=== PATIENT | male | born 1945 | race Caucasian/White ===

== ENCOUNTER 2021-04-22 10:04 | Observation (INO) | payer MEDICARE ==
[2021-04-22] MEDS ORDERED: Sodium Chloride 0.9% 1000 ML 1,000 ML IV SCH (10:15)
[2021-04-22 10:42] LABS: Hemoglobin 8.3 gm/dl (12.5-18.0); Mean Cell Volume 97.9 fl (78-100); Mean Corpuscular Hgb Concent. 29.6 g/dl (32-36); Mean Platelet Volume 9.7 fl (7.5-11.0); Platelet Count 478 K/mm3 (150-450); Red Blood Count 2.86 M/mm3 (4.1-5.6); Red Cell Distribution Width 18.1 % (11.5-14.0); White Blood Count 10.9 K/mm3 (4.0-10.5)
--- NOTE | 2021-04-22 10:45 | ERPHSYRPT ---
- History of Present Illness Time Seen by Provider: 04/22/21 10:41 Source: patient Exam Limitations: no limitations Physician History: Patient is 76-year-old male with significant past medical history of coronary artery disease hypertension hypertensive heart disease with congestive heart failure recently patient underwent coronary artery bypass graft 10 days ago and was recuperating well at home with his son. Since last 2 days he started having shortness of breath. So his son called ambulance. Patient denies any chest pain nausea vomiting abdominal pain. Patient also denies any swelling on his feet. When patient came to the emergency room patient shortness of breath was resolved. Timing/Duration: yesterday Activities at Onset: none Chest Pain Radiation: no radiation Severity of Pain-Max: none Severity of Pain-Current: none Modifying Factors: Improves With: nothing Nitro Today/Relief: no nitro taken today Aspirin Treatment Today: 81 mg x 1 Associated Symptoms: shortness of breath Prior Chest Pain/Cardiac Workup: recently seen/treated, recent hospitalization (CABG at [facility] 10 days ago) Allergies/Adverse Reactions: No Known Drug Allergies Allergy (Verified 04/22/21 10:47) Home Medications: Amiodarone HCl 200 mg PO DAILY 04/22/21 [History] Aspirin EC 81 mg [Ecotrin 81 mg] 81 mg PO DAILY 04/22/21 [History] Atorvastatin Calcium [Lipitor] 80 mg PO DAILY 04/22/21 [History] Cholecalciferol (Vitamin D3) [Vitamin D] 1,000 unit PO DAILY 04/22/21 [History] Clopidogrel Bisulfate 75 mg [PLAVIX 75 MG Tablet] 75 mg PO DAILY 04/22/21 [History] Cyanocobalamin (Vitamin B-12) [B-12] 1,000 mcg PO DAILY 04/22/21 [History] Furosemide 20 mg [Lasix 20 mg] 20 mg PO DAILY 04/22/21 [History] Metformin HCl 500 mg [Glucophage 500 MG] 500 mg PO BIDWM 04/22/21 [History] Metoprolol Tartrate 25 mg [Lopressor 25MG Tab] 12.5 mg PO BID 04/22/21 [History] PANTOPRAZOLE 40 mg Tablet [Protonix 40MG Tablet] 40 mg PO DAILY 04/22/21 [History] Potassium Chloride 10 meq PO BID 04/22/21 [History] - Review of Systems Constitutional: No Fever, No Chills Eyes: No Symptoms Ears, Nose, & Throat: No Symptoms Respiratory: Dyspnea on Exertion (MICHAEL), No Cough, No Dyspnea Cardiac: Orthopnea, PND, No Chest Pain, No Edema, No Syncope Abdominal/Gastrointestinal: No Abdominal Pain, No Nausea, No Vomiting, No Diarrhea Genitourinary Symptoms: No Dysuria Musculoskeletal: No Back Pain, No Neck Pain Skin: No Rash Neurological: No Dizziness, No Focal Weakness, No Sensory Changes Psychological: No Symptoms Endocrine: No Symptoms All Other Systems: Reviewed and Negative - Nursing Vital Signs Nursing Vital Signs: Initial Vital Signs Temperature 99.3 F 04/22/21 10:28 Pulse Rate 73 04/22/21 10:28 Respiratory Rate 18 04/22/21 10:28 Blood Pressure 149/79 04/22/21 10:28 O2 Sat by Pulse Oximetry 100 04/22/21 10:28 Pain Scale Pain Intensity 0 - Physical Exam General Appearance: no apparent distress, alert Eye Exam: PERRL/EOMI, eyes nml inspection Ears, Nose, Throat Exam: normal ENT inspection, moist mucous membranes Neck Exam: normal inspection, non-tender, supple Respiratory Exam: diminished breath sounds, crackles/rales, No respiratory distress Cardiovascular Exam: regular rate/rhythm, capillary refill <2 sec, No edema Gastrointestinal/Abdomen Exam: soft, No tenderness, No mass Back Exam: normal inspection, No CVA tenderness, No vertebral tenderness Extremity Exam: normal inspection, normal range of motion Neurologic Exam: alert, oriented x 3, cooperative, normal mood/affect, nml cerebellar function, sensation nml, No motor deficits Skin Exam: normal color, warm, dry Lymphatic Exam: No adenopathy - Course Nursing assessment & vital signs reviewed: Yes EKG Interpreted by Me: Non-specific ST Changes Rhythm Strip: Normal Sinus Rhythm - Radiology Exams Chest X-ray Interpretation: Reviewed by me, Infiltrates, Pneumonia (CHF changes) Ordered Tests: Active Orders 24 hr Category Date Time Status EKG-ER Only STAT Care 04/22/21 10:08 Active CHEST 1 VIEW (PORTABLE) Stat Exams 04/22/21 10:08 Taken CBC W DIFF Stat Lab 04/22/21 10:20 Completed CMP Stat Lab 04/22/21 10:20 Completed MAGNESIUM Stat Lab 04/22/21 10:20 Completed Manual Differential NC Stat Lab 04/22/21 10:20 Completed NT PRO BNP Stat Lab 04/22/21 10:20 Completed TROPONIN Q3H Lab 04/22/21 10:20 Completed TROPONIN Q3H Lab 04/22/21 13:15 Ordered TROPONIN Q3H Lab 04/22/21 16:15 Ordered TROPONIN Q3H Lab 04/22/21 19:15 Ordered TROPONIN Q3H Lab 04/22/21 22:15 Ordered Medication Summary Generic Name Dose Route Start Last Admin Trade Name Freq PRN Reason Stop Dose Admin Sodium Chloride 1,000 mls @ 50 mls/hr 04/22/21 10:15 Sodium Chloride 0.9% 1000 Ml IV 05/22/21 10:14 .Q20H YVON Discontinued Medications Generic Name Dose Route Start Last Admin Trade Name Freq PRN Reason Stop Dose Admin Furosemide Confirm 04/22/21 11:08 Furosemide 40 Mg/4 Ml Vial Administered 04/22/21 11:09 Dose 40 mg .ROUTE .STK-MED ONE Furosemide 40 mg 04/22/21 11:17 04/22/21 11:17 Furosemide 40 Mg/4 Ml Vial IV 04/22/21 11:18 40 mg STAT ONE Administration Lab/Rad Data: Laboratory Result Diagrams 04/22/21 10:20 04/22/21 10:20 Laboratory Results 04/22/21 04/22/21 04/22/21 Range/Units 11:27 10:20 10:20 WBC (4.0-10.5) K/mm3 RBC (4.1-5.6) M/mm3 Hgb (12.5-18.0) gm/dl Hct (42-50) % MCV (78-100) fl MCH (26-32) pg MCHC (32-36) g/dl RDW (11.5-14.0) % Plt Count (150-450) K/mm3 MPV (7.5-11.0) fl Segmented Neutrophils (36.-66.) % Band Neutrophils (0.0-2.0) % Lymphocytes (Manual) (24-44) % Monocytes (Manual) (0.0-12.0) % Eosinophils (Manual) (0.00-3.0) % Metamyelocytes % Hypersegmented Polys Hypochromia Toxic Granulation Platelet Estimate (NORMAL) RBC Morphology Polychromasia Poikilocytosis Anisocytosis Sodium 138 (137-145) mmol/L Potassium 4.1 (3.5-5.1) mmol/L Chloride 105 (98-107) mmol/L Carbon Dioxide 25 (22-30) mmol/L Anion Gap 12.1 (5-15) MEQ/L BUN 23 H (9-20) mg/dL Creatinine 1.20 (0.66-1.25) mg/dL Estimated GFR > 60.0 ML/MIN Glucose 120 H (74-106) mg/dL Calcium 8.4 (8.4-10.2) mg/dL Magnesium 1.9 (1.6-2.3) mg/dL Total Bilirubin 0.60 (0.2-1.3) mg/dL AST 47 (17-59) U/L ALT 36 (0-50) U/L Alkaline Phosphatase 127 H (38-126) U/L Troponin I 1.860 H* (0.000-0.034) ng/mL NT-Pro-B Natriuret Pep 08124 H (0-1800) pg/mL Serum Total Protein 5.9 L (6.3-8.2) g/dL Albumin 3.1 L (3.5-5.0) g/dL Influenza Type A Ag NEGATIVE (NEGATIVE) Influenza Type B Ag NEGATIVE (NEGATIVE) RSV (PCR) NEGATIVE (Negative) SARS-CoV-2 (PCR) POSITIVE A (NEGATIVE) 04/22/21 Range/Units 10:20 WBC 10.9 H (4.0-10.5) K/mm3 RBC 2.86 L (4.1-5.6) M/mm3 Hgb 8.3 L (12.5-18.0) gm/dl Hct 28.0 L (42-50) % MCV 97.9 (78-100) fl MCH 29.0 (26-32) pg MCHC 29.6 L (32-36) g/dl RDW 18.1 H (11.5-14.0) % Plt Count 478 H (150-450) K/mm3 MPV 9.7 (7.5-11.0) fl Segmented Neutrophils 84 H (36.-66.) % Band Neutrophils 1 (0.0-2.0) % Lymphocytes (Manual) 6 L (24-44) % Monocytes (Manual) 5 (0.0-12.0) % Eosinophils (Manual) 3 (0.00-3.0) % Metamyelocytes 1 % Hypersegmented Polys 1+ Hypochromia 1+ Toxic Granulation 1+ Platelet Estimate NORMAL (NORMAL) RBC Morphology ABNORMAL Polychromasia 1+ Poikilocytosis 1+ Anisocytosis 1+ Sodium (137-145) mmol/L Potassium (3.5-5.1) mmol/L Chloride (98-107) mmol/L Carbon Dioxide (22-30) mmol/L Anion Gap (5-15) MEQ/L BUN (9-20) mg/dL Creatinine (0.66-1.25) mg/dL Estimated GFR ML/MIN Glucose (74-106) mg/dL Calcium (8.4-10.2) mg/dL Magnesium (1.6-2.3) mg/dL Total Bilirubin (0.2-1.3) mg/dL AST (17-59) U/L ALT (0-50) U/L Alkaline Phosphatase (38-126) U/L Troponin I (0.000-0.034) ng/mL NT-Pro-B Natriuret Pep (0-1800) pg/mL Serum Total Protein (6.3-8.2) g/dL Albumin (3.5-5.0) g/dL Influenza Type A Ag (NEGATIVE) Influenza Type B Ag (NEGATIVE) RSV (PCR) (Negative) SARS-CoV-2 (PCR) (NEGATIVE) - Progress Progress: improved Air Movement: fair Progress Note: 04/22/21 12:25 Patient troponin is elevated as well as patient is positive for Covid infection. I talked to the laundry operator wash room at [facility], [place] but they are also on diversion because of the Covid pandemic. Their hospital beds are full so at this point of time they will not be able to accept the patient. According to laundry operator wash room patient elevated troponin is probably due to recent surgery but his shortness of breath may be related to his Covid infection as well as congestive heart failure. He advised patient to keep him here in the Covid unit. Patient's son was also informed about this decision and my conversation with the laundry operator wash room as well as laundry operator wash room recommendation. Patient and son agreed for admission here. Blood Culture(s) Obtained: No Antibiotics given: No Discussed with : Other (Dr Hunter Mayorga) Will see patient in: hospital (full admit) Counseled pt/family regarding: lab results, diagnosis, need for follow-up, rad results - Departure Departure Disposition: In-patient Admission Clinical Impression: Pneumonia due to COVID-19 virus, S/P CABG x 3 CHF (congestive heart failure), NYHA class II Qualifiers: Congestive heart failure type: combined Congestive heart failure chronicity: acute Qualified Code(s): I50.41 - Acute combined systolic (congestive) and diastolic (congestive) heart failure Condition: Fair Critical Care Time: Yes Critical Care Time(excluding separately billable procedures): Critical 30-74 mins Referrals: NICOLE PRICE [Primary Care Provider] - Follow up/PCP as directed Instructions: Heart Failure
[2021-04-22 10:49] LABS: ALBUMIN 3.1 g/dL (3.5-5.0); ALKALINE PHOSPHATASE 127 U/L (38-126); ANION GAP 12.1 MEQ/L (5-15); BLOOD UREA NITROGEN 23 mg/dL (9-20); CHLORIDE 105 mmol/L (98-107); Calcium 8.4 mg/dL (8.4-10.2); Carbon Dioxide 25 mmol/L (22-30); EST GLOMERULAR FILTRATION RATE > 60.0 ML/MIN; Glucose 120 mg/dL (74-106); MAGNESIUM 1.9 mg/dL (1.6-2.3); Potassium 4.1 mmol/L (3.5-5.1); SGOT/AST 47 U/L (17-59); SGPT/ALT 36 U/L (0-50); SODIUM 138 mmol/L (137-145); Total Protein 5.9 g/dL (6.3-8.2)
[2021-04-22 11:04] LABS: NT PRO BNP 13500 pg/mL (0-1800)
[2021-04-22] MEDS ORDERED: Lasix 40 MG/4 ML ONE (11:08)
[2021-04-22 11:15] LABS: ANISOCYTOSIS 1+; BAND 1 % (0.0-2.0); Eosinophil 3 % (0.00-3.0); Hypersegmented Polys 1+; Hypochromia 1+; Lymphocytes 6 % (24-44); Metamyelocyte 1 %; Monocyte 5 % (0.0-12.0); Neutrophils 84 % (36.-66.); Platelet Estimate NORMAL (NORMAL); Poikilocytosis 1+; Polychromasia 1+; Total Cells Counted 100; Toxic Granulation 1+
[2021-04-22] MEDS ORDERED: Lasix 40 MG/4 ML IV ONE (11:17)
[2021-04-22 12:06] LABS: INFLUENZA A NEGATIVE (NEGATIVE); INFLUENZA B NEGATIVE (NEGATIVE); RESPIRATORY SYNCTIAL VIRUS NEGATIVE (Negative)
[2021-04-22 12:16] LABS: SARS-CoV-2 Xpert Express POSITIVE (NEGATIVE)
[2021-04-22] MEDS ORDERED: Colace 100 MG PO PRN (13:24)
[2021-04-22] MEDS ORDERED: VENTOLIN COMMON CANISTER IH PRN (13:24)
[2021-04-22] MEDS: ENOXAPARIN SODIUM SQ SCH ×2 (13:52→22:42)
[2021-04-22] MEDS: Sodium Chloride 0.9% 10 ML FLUSH Syringe IV SCH ×2 (14:24→22:00)
[2021-04-22] MEDS: TYLENOL 325 MG PO PRN (18:11)
[2021-04-22] MEDS ORDERED: REMDESIVIR 200 MG in Sodium Chloride 0.9% 250 ML 250 ML IV ONE (18:30)
[2021-04-22] MEDS ORDERED: Sodium Chloride 0.9% 250 ML 250 ML IV ONE (18:34)
[2021-04-22] MEDS ORDERED: REMDESIVIR IV ONE (18:34)
[2021-04-22] MEDS ORDERED: FEVERALL 650 MG PR PRN (18:34)
[2021-04-22] MEDS ORDERED: HYDROCODONE-CHLORPHEN ER SUSP PO PRN (18:38)
[2021-04-22] MEDS ORDERED: Ativan 2 MG/1 ML VIAL IV PRN (18:43)
--- NOTE | 2021-04-22 18:50 | XRAY ---
Indication: Short of breath. Status post CABG. Comparison: None Portable chest demonstrates borderline cardiomegaly, pulmonary edema, and small bibasilar effusions favoring cardiac decompensation/CHF. Superimposed pneumonia not completely excluded. Incidental CABG, left Port-A-Cath, osteopenia, and mild bony degenerative changes.
[2021-04-22] MEDS ORDERED: Sodium Chloride 0.9% 500 ML 500 ML IV ONE (19:38)
[2021-04-22] MEDS: Klor Con 10 MEQ PO SCH (21:17)
[2021-04-22] MEDS: Pepcid 20 MG VIAL IV SCH (21:17)
[2021-04-22] MEDS ORDERED: Lopressor 25MG Tab PO SCH (22:00)
[2021-04-23 06:50] LABS: Potassium 3.9 mmol/L (3.5-5.1)
[2021-04-23] MEDS ORDERED: Ativan 1 MG PO PRN (07:51)
--- NOTE | 2021-04-23 08:46 | XRAY ---
Indication: Covid 19 pneumonia. Comparison: One day earlier. Portable chest unchanged again demonstrating borderline cardiomegaly, diffuse bilateral interstitial alveolar opacities, small bibasilar effusions, CABG, and left Port-A-Cath. No new cardiopulmonary abnormalities.
[2021-04-23] MEDS: Glucophage 500 MG PO SCH ×2 (09:48→16:55)
[2021-04-23] MEDS: ZOCOR 20MG PO SCH (09:48)
[2021-04-23] MEDS: Klor Con 10 MEQ PO SCH ×2 (09:49→21:38)
[2021-04-23] MEDS: DECADRON 10MG INJ. IV SCH (09:49)
[2021-04-23] MEDS: Protonix 40MG Tablet PO SCH (09:49)
[2021-04-23] MEDS: PLAVIX 75 MG Tablet PO SCH (09:49)
[2021-04-23] MEDS: OLUMIANT PO SCH (09:49)
[2021-04-23] MEDS: Cordarone 200 MG PO SCH (09:49)
[2021-04-23] MEDS: Vitamin B-12 500 MCG PO SCH (09:50)
[2021-04-23] MEDS: Pepcid 20 MG VIAL IV SCH ×2 (09:50→21:39)
[2021-04-23] MEDS: LASIX 20 MG PO SCH (09:51)
[2021-04-23] MEDS: Lopressor 25MG Tab PO SCH ×2 (09:51→22:38)
[2021-04-23] MEDS: ENOXAPARIN SODIUM SQ SCH ×2 (09:52→21:38)
[2021-04-23] MEDS ORDERED: PROTONIX 40 MG IV IV SCH (10:00)
[2021-04-23] MEDS ORDERED: NON-FORMULARY ITEM (Atorvastatin Calcium [Lipitor] 80 MG Tablet) PO SCH (10:00)
[2021-04-23] MEDS ORDERED: ECOTRIN 81 MG PO SCH (10:00)
[2021-04-23] MEDS ORDERED: NON-FORMULARY ITEM (Cyanocobalamin (Vitamin B-12) [B-12] 1,000 MCG Tablet) PO SCH (10:00)
[2021-04-23] MEDS: Sodium Chloride 0.9% 10 ML FLUSH Syringe IV SCH ×3 (12:42→21:39)
[2021-04-23] MEDS: MAG-OX 400 PO SCH (12:42)
--- NOTE | 2021-04-23 15:11 | HP ---
HISTORY OF PRESENT ILLNESS: Frequent cough, sharp chest pain, recent bypass in [place] ten days ago, had gone home with his son but then in two days he was short of breath and they called the ambulance. He noticed his feet were swelling more. He ran V-tach twice in the emergency room. Mild COVID test. He said he has been vaccinated. Long-term hypertension, nausea, vomiting and shortness of breath. MEDICATIONS: Tylenol PRN, amiodarone 200 q.d., aspirin 81 q.d., atorvastatin 80 q.d., Plavix 75 q.d., Lasix 20 q.d., metoprolol 12.5 mg b.i.d., Protonix 40 q.d., KCL 10 q.d., vitamin D3 q.d., B12 at 1,000 units q.d., VME blood glucose level use PRN, metformin 500 mg 1 q.d., Crestor for recent bypass. ALLERGIES: NKDA. PAST MEDICAL HISTORY: Coronary artery disease, hyperlipidemia. REVIEW OF SYSTEMS: CONSTITUTIONAL: No fever. No chills. HEENT: Eyes no problems seeing. Ears - No problems hearing. Taste intact. RESPIRATORY: Short of breath on exertion. No cough. CVS: Orthopnea. No chest pain but he has had some V-tach short lasting twice in the emergency room. ABDOMEN: Abdominal-gastrointestinal pain - None. No nausea or vomiting. MUSCULOSKELETAL: No back pain. SKIN: No rashes. ENDOCRINE: Diabetes mellitus for ten years. PHYSICAL EXAMINATION: The patient is alert, orientated. He was in good shape this morning. I did see him last night and he was in reasonably good shape, had a long talk. He worked for [employer] in [place] for many years. VITAL SIGNS: Temperature 99F, pulse 70, respirations 18, blood pressure 149/79. O2 saturation on room air 100%. HEENT: No problems hearing or seeing. Taste normal. CHEST: Few crackles. CVS: Heart sounds regular rate. No murmurs or gallops. ABDOMEN: Soft. No masses or organomegaly. EXTREMITIES: Swelling especially the left leg. Scar from recent vein harvest left side. LAB DATA AND TESTS: Labs - Hemoglobin was 8.3, white count 10.9. Electrolytes were normal. Troponin was elevated at 1.860. [place] elevated [place] 19892. Serum protein low at 5.9. Albumin low at 3.1. IMPRESSION: 1) Slight COVID despite having his two vaccinations. 2) Congestive heart failure, acute. I did initiate 40 of Lasix when he got to the unit. 3) Edema secondary to low protein, anemia and congestive heart failure. 4) Ventricular tachycardia. PLAN: Will treat him for COVID, keep him on some IV Lasix, watch his electrolytes. PROGNOSIS: Good.
[2021-04-23] MEDS: REMDESIVIR 100 MG in Sodium Chloride 0.9% 100 ML BAG 100 ML IV SCH (16:55)
[2021-04-24] MEDS ORDERED: Zofran 4 MG/2 ML VIAL IV PRN (01:40)
[2021-04-24] MEDS: TYLENOL 325 MG PO PRN ×2 (01:45→18:49)
[2021-04-24 06:43] LABS: Hematocrit 25.1 % (42-50); Hemoglobin 7.6 gm/dl (12.5-18.0); Mean Cell Volume 96.2 fl (78-100); Mean Corpuscular Hemoglobin 29.1 pg (26-32); Mean Corpuscular Hgb Concent. 30.3 g/dl (32-36); Mean Platelet Volume 9.7 fl (7.5-11.0); Platelet Count 537 K/mm3 (150-450); Red Blood Count 2.61 M/mm3 (4.1-5.6); Red Cell Distribution Width 17.7 % (11.5-14.0); White Blood Count 19.3 K/mm3 (4.0-10.5)
[2021-04-24 07:09] LABS: ALBUMIN 2.8 g/dL (3.5-5.0); ANION GAP 11.7 MEQ/L (5-15); BILIRUBIN,TOTAL 0.4 mg/dL (0.2-1.3); Calcium 7.8 mg/dL (8.4-10.2); Creatinine 1 1.24 mg/dL (0.66-1.25); EST GLOMERULAR FILTRATION RATE 59.9 ML/MIN; Potassium 4.1 mmol/L (3.5-5.1); Total Protein 5.3 g/dL (6.3-8.2)
[2021-04-24] MEDS ORDERED: Lasix 20 MG/2 ML IV PRN (09:29)
[2021-04-24] MEDS ORDERED: Sodium Chloride 0.9% 500 ML 500 ML IV SCH (09:30)
[2021-04-24] MEDS: Cordarone 200 MG PO SCH (10:50)
[2021-04-24] MEDS: MAG-OX 400 PO SCH (10:50)
[2021-04-24] MEDS: Glucophage 500 MG PO SCH ×2 (10:50→18:49)
[2021-04-24] MEDS: ZOCOR 20MG PO SCH (10:50)
[2021-04-24] MEDS: ENOXAPARIN SODIUM SQ SCH (10:50)
[2021-04-24] MEDS: DECADRON 10MG INJ. IV SCH (10:51)
[2021-04-24] MEDS: Klor Con 10 MEQ PO SCH (10:51)
[2021-04-24] MEDS: Pepcid 20 MG VIAL IV SCH (10:51)
[2021-04-24] MEDS: LASIX 20 MG PO SCH (10:51)
[2021-04-24] MEDS: PLAVIX 75 MG Tablet PO SCH (10:51)
[2021-04-24] MEDS: Protonix 40MG Tablet PO SCH (10:51)
[2021-04-24] MEDS: OLUMIANT PO SCH (10:51)
[2021-04-24] MEDS: Lopressor 25MG Tab PO SCH (10:52)
[2021-04-24] MEDS: Sodium Chloride 0.9% 10 ML FLUSH Syringe IV SCH ×2 (10:53→14:04)
[2021-04-24] MEDS: Vitamin B-12 500 MCG PO SCH (10:54)
[2021-04-24 13:18] LABS: ABO TYPING A; Antibody Screen NEGATIVE (NEGATIVE); RH TYPING POSITIVE
[2021-04-24 13:20] LABS: CROSS MATCH (PRBC) COMPATIBLE (COMPATIBLE)
[2021-04-24] MEDS: REMDESIVIR 100 MG in Sodium Chloride 0.9% 100 ML BAG 100 ML IV SCH (17:01)
[2021-04-24 23:38] LABS: Hematocrit 34.3 % (42-50); Hemoglobin 10.8 gm/dl (12.5-18.0)
[2021-04-25] MEDS: ENOXAPARIN SODIUM SQ SCH ×3 (00:09→21:54)
[2021-04-25] MEDS: Pepcid 20 MG VIAL IV SCH ×3 (00:10→21:56)
[2021-04-25] MEDS: Klor Con 10 MEQ PO SCH ×3 (00:10→21:55)
[2021-04-25] MEDS: Sodium Chloride 0.9% 10 ML FLUSH Syringe IV SCH ×4 (00:25→21:57)
[2021-04-25] MEDS: Lopressor 25MG Tab PO SCH ×3 (00:35→21:54)
[2021-04-25 05:16] LABS: Hematocrit 35.3 % (42-50); Hemoglobin 11.2 gm/dl (12.5-18.0); Mean Cell Volume 91.9 fl (78-100); Mean Corpuscular Hemoglobin 29.2 pg (26-32); Mean Corpuscular Hgb Concent. 31.7 g/dl (32-36); Mean Platelet Volume 9.7 fl (7.5-11.0); Platelet Count 584 K/mm3 (150-450); Red Blood Count 3.84 M/mm3 (4.1-5.6); Red Cell Distribution Width 18.5 % (11.5-14.0)
[2021-04-25 05:21] LABS: White Blood Count 26.9 K/mm3 (4.0-10.5)
[2021-04-25] MEDS: TYLENOL 325 MG PO PRN ×2 (05:23→17:04)
[2021-04-25 05:27] LABS: Appearance TURBID (CLEAR); Bilirubin NEGATIVE (NEGATIVE); Blood LARGE Ery/ul (0-5); Glucose NEGATIVE (NEGATIVE); Ketones NEGATIVE (NEGATIVE); Leukocyte Esterase LARGE (NEGATIVE); Nitrite NEGATIVE (NEGATIVE); Protein,Urine Dip 100 (Negative); Urobilinogen NEGATIVE mg/dL (0-1)
[2021-04-25] MEDS ORDERED: ROCEPHIN 1 Gm-D5w 50 ml Bag** 1 G/50 ML IVPB IV ONE ×2 (05:34→05:38)
[2021-04-25 06:08] LABS: Bacteria FEW /HPF (NEGATIVE); Sperm PRESENT /HPF (NEGATIVE); WBC 26-50 /HPF (0-5)
[2021-04-25 06:22] LABS: Trans. Reaction Wrkup to Path FINAL
[2021-04-25] MEDS: PLAVIX 75 MG Tablet PO SCH (09:14)
[2021-04-25] MEDS: Protonix 40MG Tablet PO SCH (09:14)
[2021-04-25] MEDS: Cordarone 200 MG PO SCH (09:14)
[2021-04-25] MEDS: MAG-OX 400 PO SCH (09:14)
[2021-04-25] MEDS: LASIX 20 MG PO SCH (09:14)
[2021-04-25] MEDS: ZOCOR 20MG PO SCH (09:14)
[2021-04-25] MEDS: OLUMIANT PO SCH (09:14)
[2021-04-25] MEDS: Glucophage 500 MG PO SCH ×2 (09:14→17:04)
[2021-04-25] MEDS: DECADRON 10MG INJ. IV SCH (09:15)
[2021-04-25] MEDS: Vitamin B-12 500 MCG PO SCH (09:16)
--- NOTE | 2021-04-25 11:36 | XRAY ---
Indication: Covid 19 pneumonia. Comparison: April 23, 2021. Portable chest again demonstrates diffuse bilateral airspace disease, worsened in right upper and left lower lungs. Heart within normal limits again with CABG and left Port-A-Cath. Remaining chest unremarkable.
[2021-04-25 13:32] LABS: Hematocrit 32.7 % (42-50); Hemoglobin 10.4 gm/dl (12.5-18.0); Mean Cell Volume 91.6 fl (78-100); Mean Corpuscular Hemoglobin 29.1 pg (26-32); Mean Corpuscular Hgb Concent. 31.8 g/dl (32-36); Mean Platelet Volume 9.8 fl (7.5-11.0); Platelet Count 455 K/mm3 (150-450); Red Blood Count 3.57 M/mm3 (4.1-5.6); Red Cell Distribution Width 18.3 % (11.5-14.0)
[2021-04-25] MEDS: REMDESIVIR 100 MG in Sodium Chloride 0.9% 100 ML BAG 100 ML IV SCH (17:05)
[2021-04-25] MEDS: ROCEPHIN 1 Gm-D5w 50 ml Bag** 1 G/50 ML IVPB IV SCH (21:56)
[2021-04-26] MEDS: Sodium Chloride 0.9% 10 ML FLUSH Syringe IV SCH ×3 (06:09→21:59)
[2021-04-26 06:12] LABS: Hemoglobin 9.9 gm/dl (12.5-18.0); Mean Cell Volume 92.8 fl (78-100); Mean Corpuscular Hemoglobin 28.7 pg (26-32); Mean Corpuscular Hgb Concent. 30.9 g/dl (32-36); Platelet Count 450 K/mm3 (150-450); Red Blood Count 3.45 M/mm3 (4.1-5.6); Red Cell Distribution Width 17.9 % (11.5-14.0); White Blood Count 18.9 K/mm3 (4.0-10.5)
[2021-04-26 06:55] LABS: Potassium 4.5 mmol/L (3.5-5.1)
[2021-04-26] MEDS: TYLENOL 325 MG PO PRN (08:34)
[2021-04-26] MEDS: Glucophage 500 MG PO SCH ×2 (08:34→17:08)
[2021-04-26] MEDS: ZOCOR 20MG PO SCH (09:49)
[2021-04-26] MEDS: LASIX 20 MG PO SCH (09:49)
[2021-04-26] MEDS: Klor Con 10 MEQ PO SCH ×2 (09:49→20:33)
[2021-04-26] MEDS: Protonix 40MG Tablet PO SCH (09:49)
[2021-04-26] MEDS: ENOXAPARIN SODIUM SQ SCH ×2 (09:49→20:32)
[2021-04-26] MEDS: Cordarone 200 MG PO SCH (09:49)
[2021-04-26] MEDS: PLAVIX 75 MG Tablet PO SCH (09:49)
[2021-04-26] MEDS: OLUMIANT PO SCH (09:49)
[2021-04-26] MEDS: Pepcid 20 MG VIAL IV SCH ×2 (09:50→20:37)
[2021-04-26] MEDS: Lopressor 25MG Tab PO SCH ×2 (09:50→20:35)
[2021-04-26] MEDS: DECADRON 10MG INJ. IV SCH (09:50)
[2021-04-26] MEDS: MAG-OX 400 PO SCH (09:50)
[2021-04-26] MEDS: Vitamin B-12 500 MCG PO SCH (09:52)
--- NOTE | 2021-04-26 11:50 | PROG NOTE ---
DATE: 04/26/2021 HISTORY: The patient is alert, orientated, breathing easily, very talkative, looks great. He has continued to improve. He is off oxygen. He is still very weak. He has a Silva catheter in place because of his heart failure. He is post-bypass two weeks, I believe, and he was placed here after he developed COVID. On 04/23/2021, we put him on Lasix 20 mg, Mag-Ox 400 and potassium 10. For some reason his hemoglobin has been elevated but we cannot find any active infection except for his chest x-ray shows more typical of COVID. His COVID test is positive. D-dimer is elevated which would be elevated secondary to surgery I would imagine. White count today is basically 19,000, hemoglobin was 9.9. He is coughing a little bit and not particularly short of breath. No abdominal pain. No problems urinating. Of course, he has a Silva catheter in. White count is down from 24,000 yesterday. His cTnI's are returning normal. Original white count on admission was 10,000. Chest x-ray showed diffuse bilateral airspace disease and it worsened on the from the 12th but physically he seems to be improving. He is diuresing well. Appears to be stable at this point. COVID seems to be well controlled. He did have COVID vaccine which tremendously has helped him. In fact, we just need to get him where he is stable with his heart failure. Will repeat the chest x-ray today. BNP is elevated pretty markedly and D-dimer is up at 30,000. Clinically, he has improved with his heart failure, his COVID, continue the same treatment. PHYSICAL EXAMINATION: CHEST: Few crackles. Heart sounds are distant and single. The wound looks to be healing very well on his chest. EXTREMITIES: No edema. : Islva catheter in place.
--- NOTE | 2021-04-26 12:00 | XRAY ---
Indication: Covid 19 pneumonia. Comparison: One day earlier. Portable chest again demonstrates diffuse bilateral air space disease with interval clearing left lower lung. Heart not enlarged again with CABG and left Port-A-Cath. No new cardiopulmonary abnormalities.
[2021-04-26] MEDS: HUMALOG SQ PRN ×2 (12:13→17:08)
[2021-04-26] MEDS: REMDESIVIR 100 MG in Sodium Chloride 0.9% 100 ML BAG 100 ML IV SCH (17:08)
[2021-04-26] MEDS: ROCEPHIN 1 Gm-D5w 50 ml Bag** 1 G/50 ML IVPB IV SCH (21:59)
[2021-04-27 06:35] LABS: Absolute Neutrophil Ct (ANC) 11.44 (1.4-6.9); BASOPHIL % 0.1 % (0.0-0.4); Basophil (Absolute #) 0.01 (0-0.4); Eosinophil % 0.1 % (0.00-5.0); Eosinophil (Absolute #) 0.01 (0-0.5); Hematocrit 32.3 % (42-50); Lymphocyte (Absolute #) 0.37 (1.0-4.6); Mean Cell Volume 92.8 fl (78-100); Mean Corpuscular Hemoglobin 28.7 pg (26-32); Mean Platelet Volume 10.3 fl (7.5-11.0); Monocyte (Absolute #) 0.48 (0.0-1.3); Monocytes % 3.9 % (0.0-12.0); Neutrophil % 92.9 % (36.0-66.0); Platelet Count 463 K/mm3 (150-450); Red Blood Count 3.48 M/mm3 (4.1-5.6); Red Cell Distribution Width 17.1 % (11.5-14.0); White Blood Count 12.3 K/mm3 (4.0-10.5)
[2021-04-27 06:53] LABS: ALBUMIN 2.9 g/dL (3.5-5.0); ALKALINE PHOSPHATASE 75 U/L (38-126); BLOOD UREA NITROGEN 36 mg/dL (9-20); CHLORIDE 104 mmol/L (98-107); Calcium 7.7 mg/dL (8.4-10.2); Carbon Dioxide 22 mmol/L (22-30); Creatinine 1 0.97 mg/dL (0.66-1.25); EST GLOMERULAR FILTRATION RATE > 60.0 ML/MIN; Glucose 212 mg/dL (74-106); NT PRO BNP 11400 pg/mL (0-1800); Potassium 4.4 mmol/L (3.5-5.1); SGOT/AST 30 U/L (17-59); SGPT/ALT 28 U/L (0-50); SODIUM 133 mmol/L (137-145); Total Protein 5.4 g/dL (6.3-8.2)
[2021-04-27 08:52] VITALS: BP 121/69; O2SAT 92
[2021-04-27] MEDS: Sodium Chloride 0.9% 10 ML FLUSH Syringe IV SCH (08:57)
[2021-04-27] MEDS: Glucophage 500 MG PO SCH (09:02)
[2021-04-27] MEDS: DECADRON 10MG INJ. IV SCH (09:06)
[2021-04-27] MEDS: Pepcid 20 MG VIAL IV SCH (09:06)
[2021-04-27] MEDS: Protonix 40MG Tablet PO SCH (09:07)
[2021-04-27] MEDS: MAG-OX 400 PO SCH (09:07)
[2021-04-27] MEDS: LASIX 20 MG PO SCH (09:07)
[2021-04-27] MEDS: ZOCOR 20MG PO SCH (09:07)
[2021-04-27] MEDS: Cordarone 200 MG PO SCH (09:07)
[2021-04-27] MEDS: Klor Con 10 MEQ PO SCH (09:08)
[2021-04-27] MEDS: PLAVIX 75 MG Tablet PO SCH (09:08)
[2021-04-27] MEDS: ENOXAPARIN SODIUM SQ SCH (09:08)
[2021-04-27] MEDS: OLUMIANT PO SCH (09:08)
[2021-04-27] MEDS: Vitamin B-12 500 MCG PO SCH (09:09)
[2021-04-27] MEDS: Lopressor 25MG Tab PO SCH (09:09)
[2021-04-27 10:38] VITALS: PULSE 62
== END 2021-04-27 12:15 | disposition home or self-care (01) ==
LOC: ED 10:04 → INTOOBSV 13:15 → MED SURG 13:15
PROVIDERS: ADMIT Family Medicine; ATTEND Family Medicine
DX: U07.1 COVID-19 (principal); J12.82 Pneumonia due to coronavirus disease 2019; I11.0 Hypertensive heart disease with heart failure; I50.41 Acute combined systolic (congestive) and diastolic (congestive) heart failure; R77.8 Other specified abnormalities of plasma proteins; R60.9 Edema, unspecified; D64.9 Anemia, unspecified; I25.10 Atherosclerotic heart disease of native coronary artery without angina pectoris; I47.2 Ventricular tachycardia; E78.5 Hyperlipidemia, unspecified; E11.9 Type 2 diabetes mellitus without complications; Z98.890 Other specified postprocedural states; Z79.899 Other long term (current) drug therapy; Z79.01 Long term (current) use of anticoagulants; Z20.828 Contact with and (suspected) exposure to other viral communicable diseases
CPT/HCPCS: 0241U; 36415; 36430; 71045; 80051; 80053; 81001; 82947; 83036; 83735; 83880; 84484; 85014; 85018; 85025; 85027; 85379; 86078; 86850; 86900; 86901; 86922; 87077; 87086; 87186; 93005; 93268; 94762; 96374; 99285; 99291; G0378; P9016; J0696; J1100; J1642; J1650; J1817; J1940; J2405; A9270-GY